=== PATIENT | female | born 1995 | race Hispanic/Latino ===

== ENCOUNTER 2022-03-31 21:26 | Emergency (ER) | payer SELFPAY ==
[2022-03-31] MEDS ORDERED: diphenhydrAMINE 50 MG/ML VIAL IM ONE (21:52)
[2022-03-31] MEDS ORDERED: HALOPERIDOL LACTATE 5 MG/1 ML INJ IM ONE (21:52)
[2022-03-31] MEDS ORDERED: LORazepam 2 MG/ML VIAL IM ONE (21:53)
[2022-04-01 00:06] LABS: Basophils # (Auto) 0.1 K/mm3 (0.0-0.1); Basophils % (Auto) 0.9 % (0.0-1.8); Eosinophils # (Auto) 0.2 K/mm3 (0.0-0.4); Eosinophils % (Auto) 2.9 % (0.0-4.3); Hematocrit 39.8 % (30.3-42.9); Hemoglobin 13.5 gm/dl (10.1-14.3); Lymphocytes # (Auto) 1.6 K/mm3 (1.2-5.4); Lymphocytes % (Auto) 22.1 % (13.4-35.0); Mean Corpuscular HGB Conc 34 % (30-34); Mean Corpuscular Volume 92 fl (79-97); Monocytes # (Auto) 0.6 K/mm3 (0.0-0.8); Monocytes % (Auto) 8.4 % (0.0-7.3); Platelet Count 287 K/mm3 (140-440); Red Blood Count 4.31 M/mm3 (3.65-5.03); Red Cell Distribution Width 13.8 % (13.2-15.2)
[2022-04-01 00:14] LABS: Blood Urea Nitrogen 21 mg/dL (7-17); Calcium 9.5 mg/dL (8.4-10.2); Hemolysis Index 29
--- NOTE | 2022-04-01 00:18 | Emergency Department Report ---
ED Psych HPI - General Chief Complaint: Psych Stated Complaint: MENTAL HEALTH EVALUATION Time Seen by Provider: 03/31/22 22:34 Source: EMS Mode of arrival: Stretcher - History of Present Illness Initial Comments: 27 yo F history of schizophrenia and bipolar brought in by EMS with agitation after taken unknown illicit drug. According to mother patient told her that she is suicidal. Pt keep yelling and screaming. No other modifying or associated factors. - Related Data Allergies Allergy/AdvReac Type Severity Reaction Status Date / Time No Known Allergies Allergy Unverified 03/31/22 21:37 ED Review of Systems ROS: Stated complaint: MENTAL HEALTH EVALUATION Other details as noted in HPI Comment: All other systems reviewed and negative Psychiatric: anxiety, suicidal thoughts ED Past Medical Hx - Past Medical History Previous Medical History?: Yes Hx Psychiatric Treatment: Yes (SCHIZOPHRENIA, BIPOLAR, DEPRESSION, METH IS DOC) - Social History Smoking Status: Current Every Day Smoker Substance Use Type: Alcohol, Methamphetamines ED Physical Exam - General Limitations: No Limitations General appearance: alert, anxious, other (Agitation) - Head Head exam: Present: atraumatic, normal inspection - Eye Eye exam: Present: normal appearance Pupils: Present: normal accommodation - ENT ENT exam: Present: normal exam, normal orophraynx, mucous membranes moist - Neck Neck exam: Present: normal inspection, full ROM. Absent: tenderness - Respiratory Respiratory exam: Present: normal lung sounds bilaterally. Absent: respiratory distress, accessory muscle use - Cardiovascular Cardiovascular Exam: Present: regular rate, normal rhythm, normal heart sounds - GI/Abdominal GI/Abdominal exam: Present: soft, normal bowel sounds. Absent: distended, tenderness - Extremities Exam Extremities exam: Present: normal inspection, normal capillary refill. Absent: tenderness, pedal edema - Back Exam Back exam: Absent: tenderness - Neurological Exam Neurological exam: Present: alert, oriented X3 - Psychiatric Psychiatric exam: Present: agitated - Skin Skin exam: Present: warm, normal color ED Course Vital Signs 03/31/22 21:37 Temperature 98.9 F Pulse Rate 79 Respiratory 18 Rate Blood Pressure 119/78 O2 Sat by Pulse 100 Oximetry - Reevaluation(s) Reevaluation #1: 04/01/22 00:40 I was told that patient escaped with her mother ED Medical Decision Making - Lab Data Result diagrams: 03/31/22 23:25 03/31/22 23:25 - Medical Decision Making Here with depression and feeling and suicidal thoughts--differential diagnosis, including but not limited to: Encounter for behavioral health screening ex amination, encounter for medical screening examination--Due to these will go ahead and other routine labs studies including CBC, CMP and UA with UDS and thyroid profile in anticipation for mental health evaluation. Assessment and plan: here with concern with depressive feeling and suicidal ideation --but noted with reassuring vital signs, in no acute distress, who is cooperative, ANO x3, not homicidal but suicidal. At this point in time, this patient is cleared medically for psychiatry evaluation and recommendation. I will go ahead and order a 1013. He has not demonstrated any witnessed behavior here in the ED that would be consistent with acute decompensated psychosis. I have ordered mental health evaluation. Will go ahead and order typical laboratory studies in anticipation of mental health requests. Laboratory studies are reviewed and are unremarkable at this time. Awaiting [facility] consultation and evaluation. Ultimate disposition as per mental health team. At this point in time, this patient does not appear to have an immediate medical contraindication to psychiatric admission, evaluation, consultation and placement. Holding orders initiated. COVID swab ordered in anticipation of psychiatric placement. As needed medications are ordered. Patient remained suitable at this time for psychiatric placement, consultation and disposition. He does not appear to have an emergent medical condition present at this time. Critical care attestation.: If time is entered above; I have spent that time in minutes in the direct care of this critically ill patient, excluding procedure time. ED Disposition Clinical Impression: Agitation Overdose Qualifiers: Encounter type: initial encounter Injury intent: undetermined intent Qualified Code(s): T50.904A - Poisoning by unspecified drugs, medicaments and biological substances, undetermined, initial encounter Overdose by amphetamine Qualifiers: Encounter type: initial encounter Injury intent: undetermined intent Qualified Code(s): T43.624A - Poisoning by amphetamines, undetermined, initial encounter Disposition: 07 LEFT AWOL/ELOPED Is pt being admited?: No Does the pt Need Aspirin: No Condition: Stable
[2022-04-01 00:22] LABS: BUN/Creatinine Ratio 30
--- NOTE | 2022-04-01 06:08 | Emergency Department Report ---
ED Psych HPI - General Chief Complaint: Psych Stated Complaint: MENTAL HEALTH EVALUATION Time Seen by Provider: 03/31/22 22:34 Source: EMS Mode of arrival: Stretcher - History of Present Illness Initial Comments: 27 yo F history of schizophrenia and bipolar brought in by EMS with agitation after taken unknown illicit drug. According to mother patient told her that she is suicidal. Pt keep yelling and screaming. No other modifying or associated factors. MD Complaint: suicidal ideation - Related Data Allergies Allergy/AdvReac Type Severity Reaction Status Date / Time No Known Allergies Allergy Unverified 03/31/22 21:37 ED Review of Systems ROS: Stated complaint: MENTAL HEALTH EVALUATION Other details as noted in HPI Comment: All other systems reviewed and negative Psychiatric: anxiety, suicidal thoughts ED Past Medical Hx - Past Medical History Previous Medical History?: Yes Hx Psychiatric Treatment: Yes (SCHIZOPHRENIA, BIPOLAR, DEPRESSION, METH IS DOC) - Social History Smoking Status: Current Every Day Smoker Substance Use Type: Alcohol, Methamphetamines ED Physical Exam - General Limitations: No Limitations General appearance: alert, anxious, other (Agitation) - Head Head exam: Present: atraumatic, normal inspection - Eye Eye exam: Present: normal appearance Pupils: Present: normal accommodation - ENT ENT exam: Present: normal exam, normal orophraynx - Neck Neck exam: Present: normal inspection, full ROM. Absent: tenderness - Respiratory Respiratory exam: Present: normal lung sounds bilaterally. Absent: respiratory distress, accessory muscle use - Cardiovascular Cardiovascular Exam: Present: regular rate, normal rhythm, normal heart sounds - GI/Abdominal GI/Abdominal exam: Present: soft, normal bowel sounds. Absent: distended, tenderness - Extremities Exam Extremities exam: Present: normal inspection - Back Exam Back exam: Present: normal inspection - Neurological Exam Neurological exam: Present: alert, oriented X3 - Psychiatric Psychiatric exam: Present: agitated, anxious - Skin Skin exam: Present: warm, normal color ED Course Vital Signs 03/31/22 04/01/22 21:37 02:41 Temperature 98.9 F 98.2 F Pulse Rate 79 85 Respiratory 18 16 Rate Blood Pressure 119/78 Blood Pressure 93/55 [Left] O2 Sat by Pulse 100 88 Oximetry ED Medical Decision Making - Lab Data Result diagrams: 03/31/22 23:25 03/31/22 23:25 - Medical Decision Making Here with depression and feeling and suicidal thoughts--differential diagnosis, including but not limited to: Encounter for behavioral health screening examination, encounter for medical screening examination--Due to these will go ahead and other routine labs studies including CBC, CMP and UA with UDS and thyroid profile in anticipation for mental health evaluation. Assessment and plan: here with concern with depressive feeling and suicidal ideation --but noted with reassuring vital signs, in no acute distress, who is cooperative, ANO x3, not homicidal but suicidal. At this point in time, this patient is cleared medically for psychiatry evaluation and recommendation. I will go ahead and order a 1013. He has not demonstrated any witnessed behavior here in the ED that would be consistent with acute decompensated psychosis. I have ordered mental health evaluation. Will go ahead and order typical laboratory studies in anticipation of mental health requests. Laboratory studies are reviewed and are unremarkable at this time. Awaiting mental health consultation and evaluation. Ultimate disposition as per mental health team. At this point in time, this patient does not appear to have an immediate medical contraindication to psychiatric admission, evaluation, consultation and placement. Patient has had his 1013 filled out by myself. Holding orders initiated. COVID swab ordered in anticipation of psychiatric placement. As needed medications are ordered. Patient remained suitable at this time for psychiatric placement, consultation and disposition. He does not appear to have an emergent medical condition present at this time. Critical care attestation.: If time is entered above; I have spent that time in minutes in the direct care of this critically ill patient, excluding procedure time. ED Disposition Clinical Impression: Overdose by amphetamine Qualifiers: Encounter type: initial encounter Injury intent: undetermined intent Qualified Code(s): T43.624A - Poisoning by amphetamines, undetermined, initial encounter Disposition: [address] [place] [address] Is pt being admited?: No Does the pt Need Aspirin: No Condition: Stable Instructions: Intentional Drug Overdose Time of Disposition: 06:08
--- NOTE | 2022-04-01 11:15 | Consultation ---
History of Present Illness - Reason for Consult Consult date: 04/01/22 Reason for consult: agitation - History of Present Psychiatric Illness The patient was seen today. The patient is calm, but evasive. I have to ask the patient the questions several times. She says she was brought to the hospital by her mom, but denies knowing why her mom brought her. The patient then says "I guess I was agitated." The patient endorses doing "meth and marijuana." She denies SI/HI or hallucinations. I ask the patient what psychiatric history does she have, she replies "I don't know." She then says "I think Bipolar." The patient could not recall what meds she was on. REVIEW OF SYSTEMS Constitutional: Negative for weight loss ENT: Negative for stridor Respiratory: Negative for cough or hemoptysis All other systems reviewed and are negative MENTAL STATUS EXAMINATION General Appearance and Behavior: Age appropriate, wearing appropriate clothes, cooperative, irritable Cooperation: cooperative, evasive Psychomotor Behavior: Psychomotor normal Mood: okay Affect and affective range: congruent with stated mood Thought Process: circumstantial Thought Content: within reality Speech: Normal volume, normal rate and rhythm Suicidal Ideation: Denies Homicidal Ideation: Denies Hallucination: Denies Delusions: none elicited Impulse Control: Impaired Insight and Judgment: Limited Memory: Limited Attention: distracted Orientation: Alert Diagnoses: 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 SUBSTATION DESIGNER: Defer to primary DISPOSITION: Do recommend acute inpatient psychiatric hospitalization at this time. 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 Please contact with any questions and/or concerns. Case staffed with Dr. Cox Medications and Allergies Allergies Allergy/AdvReac Type Severity Reaction Status Date / Time No Known Allergies Allergy Unverified 03/31/22 21:37 Mental Status Exam - Vital signs Last Vital Signs Temp 98.2 F 04/01/22 02:41 Pulse 85 04/01/22 02:41 Resp 16 04/01/22 02:41 BP 93/55 04/01/22 02:41 Pulse Ox 97 04/01/22 10:32 Results Result Diagrams: 03/31/22 23:25 03/31/22 23:25 Abnormal lab results 03/31/22 03/31/22 03/31/22 Range/Units 23:25 23:25 23:25 Coles % (Auto) 8.4 H (0.0-7.3) % BUN 21 H (7-17) mg/dL Salicylates < 0.3 L (2.8-20.0) mg/dL Acetaminophen (10.0-30.0) ug/mL 03/31/22 Range/Units 23:25 Coles % (Auto) (0.0-7.3) % BUN (7-17) mg/dL Salicylates (2.8-20.0) mg/dL Acetaminophen 5.0 L (10.0-30.0) ug/mL All other labs normal.
[2022-04-02 10:32] VITALS: BP 100/62
== END 2022-04-02 14:00 ==
LOC: ED 21:26
DX: T43.621A Poisoning by amphetamines, accidental (unintentional), initial encounter (principal); R45.1 Restlessness and agitation; Z20.822 Contact with and (suspected) exposure to COVID-19; F20.9 Schizophrenia, unspecified; F17.200 Nicotine dependence, unspecified, uncomplicated; Y92.89 Other specified places as the place of occurrence of the external cause
CPT/HCPCS: 36415; 80048; 84703; 85025; 96372; 99284; J1200; J1630; J2060; U0003; 80320; G0480